=== PATIENT | female | born 1985 | race African-American/Black ===

== ENCOUNTER → 2017-05-16 | Outpatient (CLI) | payer BC, OTHER ==
[~2017-05-16] MED LIST: PEPC10TA; PRENMIS7 PO
== END ==
LOC: HPND 10:57
PROVIDERS: ATTEND Obstetrics & Gynecology
DX: O34.42 Maternal care for other abnormalities of cervix, second trimester (principal); O44.02 Complete placenta previa NOS or without hemorrhage, second trimester; O35.8XX0 Maternal care for other (suspected) fetal abnormality and damage, not applicable or unspecified
CPT/HCPCS: 76811; 76817

== ENCOUNTER → 2017-06-14 | Outpatient (CLI) | payer BC, OTHER ==
[~2017-06-14] MED LIST changes: +FERRTAB2 PO; +GNP150TA PO; +ONDA8TAB8 SL; +RANI150C PO
== END ==
LOC: HPND 08:09
PROVIDERS: ATTEND Obstetrics & Gynecology
DX: O35.1XX0 Maternal care for (suspected) chromosomal abnormality in fetus, not applicable or unspecified (principal); O34.42 Maternal care for other abnormalities of cervix, second trimester; Z3A.22 22 weeks gestation of pregnancy
CPT/HCPCS: 76816; 76817

== ENCOUNTER 2017-07-03 19:20 | Emergency (ER) | payer BC, OTHER ==
[~2017-07-03 19:20] MED LIST changes: -GNP150TA PO; -ONDA8TAB8 SL
--- NOTE | 2017-07-03 20:42 | PD ---
HPI Chief Complaint left leg swelling slight tenderness Date Seen: Jul 03, 2017 Time Seen: 20:30 Travel History International Travel<30 Days: No Contact w/Intl Traveler<30Days: No Known Affected Area: No History of Present Illness HPI 25 wk IUP with 1 month of left leg swelling and minimal tenderness Weeks Gestation: 25 Para: 1 : 2 History Obstetric History Obstetric History 1 vag del Social History Alcohol Use: No Tobacco Use: No Substance Abuse: No Allergies-Medications (Allergen,Severity, Reaction): Coded Allergies: No Known Allergies (Unverified , 06/25/17) Home Meds Active Scripts Multi-Vit/Iron-Folic [id number] C (Ferralet) 90-1-0.012-120 mg Tab, 1 CAPLET PO DAILY for 30 Days, #30 CAPLET 2 Refills Prov:Nimco WoodwardP 06/25/17 Ranitidine (Ranitidine) 150 Mg Cap, 150 MG PO DAILY, #30 CAP 0 Refills Prov:Nimco WoodwardP 06/25/17 W/O Vit A W/ Fe Carbo Pack (Citranatal B-Calm Pack) 20-1 & 25 (2) Mg Pack, 1 EA PO DIRECTED for Nutritional Supplement, #30 BLISTER 2 Refills 30 day supply. Prov:Josephine Ventura CNM [facility] 03/28/17 W/O Vit A W/ Fe Fumar (Citranatal [place]) 27-1-260 Mg Cap Prov:Karen Leslie [facility] 03/28/17 Reported Medications Famotidine (Pepcid AC) 10 Mg Tablet 03/28/17 Review of Systems General / Constitutional: No: Fever, Weight Gain, Chills, Other Eyes: No: Diploplia, Blurred Vision, Visual changes, Pain, Photophobia HENT: No: Headaches, Vertigo, Lightheadedness Cardiovascular: No: Irregular Rhythm, Chest Pain or Discomfort, Palpitations, Tachycardia, Syncope, Varicosities, Edema, Cyanosis Respiratory: No: Cough, Short of Breath, Other Gastrointestinal: No: Nausea, Vomiting, Diarrhea Genitourinary: No: Decreased Urinary Output, Oliguria Musculoskeletal: Edema, No: Limited ROM, Weakness, Cramping, Pain Skin: No Rash, No Itching, No Dryness, No Lumps, No Change in Pigmentation, No Change in Nails, No Alopecia, No Lesions Neurologic: No: Weakness, Dizziness, Syncope, Focal Abnormalities, Coordination Problem, Headache, Slurred Speech, Seizures Psychiatric: No: Depression, Suicidal Ideations, Homicidal Ideation Endocrine: No: Heat Intolerance, Cold Intolerance, Polydipsia, Polyuria, Other Physical Exam Narrative GENERAL: Well-nourished, well-developed patient. SKIN: Warm and dry. HEAD: Normocephalic and atraumatic. EYES: No scleral icterus. No injection or drainage. ENT: No nasal drainage noted. Mucous membranes pink. Airway patent. NECK: Supple, trachea midline. No JVD. CARDIOVASCULAR: Regular rate and rhythm without murmurs, gallops, or rubs. RESPIRATORY: Breath sounds equal bilaterally. No accessory muscle use. BREASTS: Bilateral exam showed no masses , no retractions, no nipple discharge. ABDOMEN/GI: Abdomen soft, non-tender, bowel sounds present, no rebound, no guarding Gravid to [-25] weeks size Fundal Height: [25-] GENITOURINARY: External Genitalia: intact and normal in appearance BUS glands: [-] Cervix: [-] Dilatation: [-0] Effacement: [-thick] Station: [-3] Membranes: [intact ] Uterine Contractions: [none-] FHT's: Category: [1-] Baseline: [133-] Reactive: [yes-] Variability: [-mod] Decels: [-none] EXTREMITIES: No cyanosis , slight edema in lower left leg near ankle , no tenderness in calf , neg Homans BACK: Nontender without obvious deformity. No CVA tenderness. NEUROLOGICAL: Awake and alert. Motor and sensory grossly within normal limits. Five out of 5 muscle strength in all muscle groups. Normal speech. Data Data Orders Orders Us Leg Venous Doppler Bilat (07/03/17 ) Celso Mcconnell II, MD Jul 03, 2017 20:42
--- NOTE | 2017-07-03 21:47 | RADRPT ---
EXAM DATE/TIME: 07/03/2017 20:59 [facility] COMPARISON: No previous studies available for comparison. INDICATIONS : Bilateral leg swelling. MEDICAL HISTORY : . Bilateral leg swelling. SURGICAL HISTORY : Appendectomy. LEEP. ENCOUNTER: Initial ACUITY: 2 months PAIN SCORE: 0/10 LOCATION: Bilateral legs. TECHNIQUE: Venous ultrasound of the left and right leg was performed from the inguinal ligament to the proximal calf. Real-time, color Doppler and spectral tracing, compression and augmentation techniques were us ed. FINDINGS: RIGHT LEG: There is normal compressibility of the deep venous system from the inguinal region to the proximal ca lf. No echogenic clot is seen in the lumen of the common femoral, femoral, popliteal, and posterior tibial veins. There is a normal response of the venous system to proximal and distal augmentation an d respiration. LEFT LEG: There is normal compressibility of the deep venous system from the inguinal region to the proximal ca lf. No echogenic clot is seen in the lumen of the common femoral, femoral, popliteal, and posterior tibial veins. There is a normal response of the venous system to proximal and distal augmentation an d respiration. CONCLUSION: No DVT. Feroz Baeza MD on July 03, 2017 at 21:45 Board Certified Radiologist. This report was verified electronically.
[2017-07-25] MEDS ORDERED: ONDA8TAB8 SL (09:42)
[2017-08-08] MEDS ORDERED: GNP150TA PO (09:42)
== END 2017-07-03 23:01 | disposition home or self-care (01) ==
LOC: HOBED 19:20
DX: O12.02 Gestational edema, second trimester (principal); Z3A.25 25 weeks gestation of pregnancy
CPT/HCPCS: 93970; 99284

== ENCOUNTER → 2017-08-02 | Outpatient (CLI) | payer BC, OTHER ==
[~2017-08-02] MED LIST changes: +GNP150TA PO; +ONDA8TAB8 SL
== END ==
LOC: HPND 09:22
PROVIDERS: ATTEND Obstetrics & Gynecology
DX: O34.42 Maternal care for other abnormalities of cervix, second trimester (principal); O35.1XX0 Maternal care for (suspected) chromosomal abnormality in fetus, not applicable or unspecified; O35.8XX0 Maternal care for other (suspected) fetal abnormality and damage, not applicable or unspecified; Z3A.00 Weeks of gestation of pregnancy not specified
CPT/HCPCS: 76816; 76817

== ENCOUNTER → 2017-09-05 | Outpatient (CLI) | payer BC, OTHER ==
[~2017-09-05] MED LIST changes: -RANI150C PO
== END ==
LOC: HPND 10:57
PROVIDERS: ATTEND Obstetrics & Gynecology
DX: O40.3XX0 Polyhydramnios, third trimester, not applicable or unspecified (principal); O35.8XX0 Maternal care for other (suspected) fetal abnormality and damage, not applicable or unspecified; O34.43 Maternal care for other abnormalities of cervix, third trimester
CPT/HCPCS: 76816

== ENCOUNTER 2017-10-07 23:05 | Inpatient (IN) | payer BC, OTHER ==
[~2017-10-07] VITALS: Ht 149.9 cm; Wt 58.0 kg
[~2017-10-07 23:05] MED LIST changes: +TERC.4%V VAGINAL
[2017-10-07 23:25] VITALS: PULSE 70
[2017-10-07] MEDS: LACTATED RINGER'S 1000 ML INJ 1,000 ML IV SCH (23:31)
[2017-10-07] MEDS ORDERED: LACTATED RINGER'S 1000 ML INJ 1,000 ML IV PRN (23:31)
--- NOTE | 2017-10-07 23:35 | HHI.HP ---
HPI Chief Complaint Contractions Date Seen: Oct 07, 2017 Time Seen: 23:33 Travel History International Travel<30 Days: No Contact w/Intl Traveler<30Days: No Known Affected Area: No History of Present Illness HPI 32-year-old black female at 39 weeks [facility] and presents in active labor cervix is 4 cm 80% and -2, heart rate tracing is reactive contractions are regular, no bleeding Weeks Gestation: 39 Para: 1 : 2 History Obstetric History Obstetric History One vaginal delivery Social History Alcohol Use: No Tobacco Use: No Substance Abuse: No Allergies-Medications (Allergen,Severity, Reaction): Coded Allergies: No Known Allergies (Unverified Adverse Reaction, Unknown, 10/03/17) Home Meds Active Scripts Terconazole Vaginal Cream (Terazol 7 Vaginal Cream) 0.4 % Cream, 1 APPL VAGINAL HS for Fungal Infection, #45 GM 0 Refills 1 applicatorful intravaginally x 7 nights Prov:Karen LeslieP 10/03/17 Ranitidine HCl (Gnp Acid Control 150 Maxi) 150 Mg Tab, 1 TAB PO DAILY, #60 BOTTLE 6 Refills Prov:Karen Leslie [facility] 08/08/17 Ondansetron Odt (Ondansetron Odt) 8 Mg Tab, 8 MG SL Q12HR for Nausea/Vomiting, # 10 TAB 0 Refills [facility] Multi-Vit/Iron-Folic [id number]-C62-[id number] C (Ferralet) 90-1-0.012-120 mg Tab, 1 CAPLET PO DAILY for 30 Days, #30 CAPLET 2 Refills Prov:[facility] 06/[facility]/17 W/O Vit A W/ Fe Carbo Pack (Citranatal B-Calm Pack) 20-1 & 25 (2) Mg Pack, 1 EA PO DIRECTED for Nutritional Supplement, #30 BLISTER 2 Refills 30 day supply. Prov:Josephine Ventura [facility] 03/28/17 W/O Vit A W/ Fe Fumar (Citranatal [place]) 27-1-260 Mg Cap Prov:Karen Leslie [facility] 03/28/17 Reported Medications Famotidine (Pepcid AC) 10 Mg Tablet 03/28/17 Review of Systems General / Constitutional: No: Fever, Weight Gain, Chills, Other Eyes: No: Diploplia, Blurred Vision, Visual changes, Pain, Photophobia HENT: No: Headaches, Vertigo, Lightheadedness Cardiovascular: No: Irregular Rhythm, Chest Pain or Discomfort, Palpitations, Tachycardia, Syncope, Varicosities, Edema, Cyanosis Respiratory: No: Cough, Short of Breath, Other Gastrointestinal: No: Nausea, Vomiting, Diarrhea Genitourinary: No: Decreased Urinary Output, Oliguria Musculoskeletal: No: Limited ROM, Weakness, Cramping, Edema, Pain Skin: No Rash, No Itching, No Dryness, No Lumps, No Change in Pigmentation, No Change in Nails, No Alopecia, No Lesions Neurologic: No: Weakness, Dizziness, Syncope, Focal Abnormalities, Coordination Problem, Headache, Slurred Speech, Seizures Psychiatric: No: Depression, Suicidal Ideations, Homicidal Ideation Endocrine: No: Heat Intolerance, Cold Intolerance, Polydipsia, Polyuria, Other Physical Exam Narrative GENERAL: Well-nourished, well-developed patient. SKIN: Warm and dry. HEAD: Normocephalic and atraumatic. EYES: No scleral icterus. No injection or drainage. ENT: No nasal drainage noted. Mucous membranes pink. Airway patent. NECK: Supple, trachea midline. No JVD. CARDIOVASCULAR: Regular rate and rhythm without murmurs, gallops, or rubs. RESPIRATORY: Breath sounds equal bilaterally. No accessory muscle use. BREASTS: Bilateral exam showed no masses , no retractions, no nipple discharge. ABDOMEN/GI: Abdomen soft, non-tender, bowel sounds present, no rebound, no guarding Gravid to [39-] weeks size Fundal Height: [-39] GENITOURINARY: External Genitalia: intact and normal in appearance BUS glands: [-] Cervix: [-] Dilatation: [4-] Effacement: [80-] Station: [-2] Presentation: [vtx by US-] Membranes: [intact ] Uterine Contractions: [-reg] FHT's: Category: [-1] Baseline: [133-] Reactive: [-yes] Variability: [-mod] Decels: [0-] EXTREMITIES: No cyanosis or edema. BACK: Nontender without obvious deformity. No CVA tenderness. NEUROLOGICAL: Awake and alert. Motor and sensory grossly within normal limits. Five out of 5 muscle strength in all muscle groups. Normal speech. Caprini VTE Risk Assessment Caprini VTE Risk Assessment: No/Low Risk (score <= 1) Caprini Risk Assessment Model Point Value = 1 Point Value = 2 Point Value = 3 Point Value = 5 Age 41-60 Minor surgery BMI > 25 kg/m2 Swollen legs Varicose veins or History of unexplained or recurrent spontaneous Oral contraceptives or hormone replacement Sepsis (< 1 month) Serious lung disease, including pneumonia (< 1 month) Abnormal pulmonary function Acute myocardial infarction Congestive heart failure (< 1 month) History of inflammatory bowel disease Medical patient at bed rest Age 61-74 Arthroscopic surgery Major open surgery (> 45 min) Laparoscopic surgery (> 45 min) Malignancy Confined to bed (> 72 hours) Immobilizing plaster cast Central venous access Age >= 75 History of VTE Family history of VTE Factor V Leiden Prothrombin [id number] Lupus anticoagulant Anticardiolipin antibodies Elevated serum homocysteine Heparin-induced thrombocytopenia Other congenital or acquired thrombophilia Stroke (< 1 month) Elective arthroplasty Hip, pelvis, or leg fracture Acute spinal cord injury (< 1 month) Prophylaxis Regimen Total Risk Factor Score Risk Level Prophylaxis Regimen 0-1 Low Early ambulation 2 Moderate Order ONE of the following: *Sequential Compression Device (SCD) *Heparin 5000 units SQ BID 3-4 Higher Order ONE of the following medications: *Heparin 5000 units SQ TID *Enoxaparin/Lovenox 40 mg SQ daily (WT < 150 kg, CrCl > 30 mL/min) *Enoxaparin/Lovenox 30 mg SQ daily (WT < 150 kg, CrCl > 10-29 mL/min) *Enoxaparin/Lovenox 30 mg SQ BID (WT < 150 kg, CrCl > 30 mL/min) AND/OR *Sequential Compression Device (SCD) 5 or more Highest Order ONE of the following medications: *Heparin 5000 units SQ TID (Preferred with Epidurals) *Enoxaparin/Lovenox 40 mg SQ daily (WT < 150 kg, CrCl > 30 mL/min) *Enoxaparin/Lovenox 30 mg SQ daily (WT < 150 kg, CrCl > 10-29 mL/min) *Enoxaparin/Lovenox 30 mg SQ BID (WT < 150 kg, CrCl > 30 mL/min) AND *Sequential Compression Device (SCD) Data Data Orders Orders Admit To Inpatient (10/07/17 ) Vital Signs (Adult) .Per protocol (10/07/17 23:31) Heart (10/07/17 23:31) Amnioinfusion (10/07/17 23:31) Urinary Catheter Management .ONCE (10/07/17 23:31) Diet Liquid (10/08/17 Breakfast) Lactated Ringer's 1000 Ml Inj (Lr 1000 M (10/07/17 23:31) Lactated Ringer's 1000 Ml Inj (Lr 1000 M (10/07/17 23:31) Sodium Chlorid 0.9% 500 Ml Inj (Ns 500 M (10/07/17 23:45) Sodium Chlor 0.9% 1000 Ml Inj (Ns 1000 M (10/07/17 23:51) Lidocaine 1% Inj (50 Ml) (Xylocaine 1% I (10/07/17 23:45) Citric Acid-Sodium Citrate Liq (Bicitra (10/07/17 23:45) Fentanyl Inj (Fentanyl Inj) (10/07/17 23:45) Fentanyl Inj (Fentanyl Inj) (10/07/17 23:45) Complete Blood Count With Diff (10/07/17 23:31) Hold Clot (10/07/17 23:31) Abo/Rh Blood Type (10/07/17 23:31) Urinalysis - C+S If Indicated (10/07/17 23:31) Drug Screen, Random Urine (10/07/17 23:31) Resp Oxygen Non Rebreathe Mask (10/07/17 ) ^ Epidural / Intrathecal Infus (10/07/17 23:31) Oxytocin 30 Units-500ml Premix (Pitocin (10/07/17 23:45) Lidocaine 1% Inj (50 Ml) (Xylocaine 1% I (10/07/17 23:45) Light Mineral Oil (Muri-Lube Oil) (10/07/17 23:45) Group B Strep: Negative Assessment/Plan Assessment and Plan Patient is 32-year-old white female at 39 weeks presents in active labor. Cervix is 4/ 80 and -2, vertex by ultrasound check, heart tracing is reactive contractions are regular. Plan--admit for labor management and anticipate vaginal delivery Celso Mcconnell II, MD Oct 07, 2017 23:35
[2017-10-07] MEDS ORDERED: OXYTOCIN 30 UNITS-500ML PREMIX 500 ML IV ONE (23:45)
[2017-10-07] MEDS ORDERED: CITRIC ACID-SODIUM CITRATE LIQ 30 ML UDC PO SCH (23:45)
[2017-10-07] MEDS ORDERED: LIDOCAINE HCL 1% 50 ML VIAL INFIL PRN (23:45)
[2017-10-07] MEDS ORDERED: MINERAL OIL 10 ML VIAL TOPICAL PRN (23:45)
[2017-10-07] MEDS ORDERED: SODIUM CHLORID 0.9% 500 ML INJ 500 ML IV PRN (23:45)
[2017-10-07] MEDS ORDERED: LIDOCAINE HCL 1% 50 ML VIAL I-DERMAL PRN (23:45)
[2017-10-07] MEDS ORDERED: SODIUM CHLOR 0.9% 1000 ML INJ 1,000 ML IV PRN (23:51)
[2017-10-07 23:55] VITALS: PULSE 63
[2017-10-08] VITALS (135 sets, daily range): BP systolic 95–159; BP diastolic 52–135; PULSE 54–126; RESP 16–21; TEMP 97.1–98.9; O2SAT 100
[2017-10-08] MEDS ORDERED: TUMS500C CHEW (00:02)
[2017-10-08 00:07] LABS: BLOOD, URINE NEG (NEG); COMMENT (UR) CULT NOT INDICATED; CULTURE IF INDICATED CULT NOT INDICATED; GLUCOSE,URINE NEG (NEG); KETONE, URINE NEG (NEG); NITRITE,URINE NEG (NEG); SQUAMOUS EPITHELIAL CELL URINE 12 /hpf (0-5); TRANSITIONAL EPI CELLS, URINE <1 /hpf; URINE COLOR LIGHT-YELLOW (YELLW/STRAW)
[2017-10-08] MEDS ORDERED: fentaNYL 2MCG-BUPIV 0.125% INJ 100 ML ONE (00:07)
[2017-10-08] MEDS ORDERED: ZANT300T PO (00:14)
[2017-10-08 00:16] LABS: AUTOMATED NEUTROPHIL # 8.5 TH/MM3 (1.8-7.7); BASOPHIL % 0.2 % (0.0-2.0); EOSINOPHIL % 0.4 % (0.0-4.0); HEMATOCRIT 33.7 % (35.0-46.0); HEMO FLAGS DIFF FINAL; LYMPH % 23.6 % (9.0-44.0); LYMPHOCYTE # 2.9 TH/MM3 (1.0-4.8); MEAN CELL VOLUME 97.6 FL (80.0-100.0); MEAN CORPUSCULAR HEMOGLOBIN 33.6 PG (27.0-34.0); MEAN CORPUSCULAR HGB CONC 34.5 % (32.0-36.0); NEUT % 69.8 % (16.0-70.0); PLATELET COUNT 204 TH/MM3 (150-450); RED BLOOD COUNT 3.45 MIL/MM3 (4.00-5.30); RED CELL DISTRIBUTION WIDTH 14.3 % (11.6-17.2); WHITE BLOOD COUNT 12.2 TH/MM3 (4.0-11.0)
[2017-10-08] MEDS: ACETAMINOPHEN 325 MG TAB PO PRN ×2 (01:49→05:31)
[2017-10-08] MEDS: CALCIUM CARBONATE 500 MG CHEWABLE TAB PO PRN ×2 (01:51→05:31)
[2017-10-08] MEDS ORDERED: fentaNYL 2MCG-BUPIV 0.125% 100 ML EPIDURAL SCH (02:00)
[2017-10-08] MEDS ORDERED: NO SYSTEM NARCOTICS PRN (02:00)
[2017-10-08] MEDS ORDERED: ePHEDrine/NS 25 MG/5 ML SYR IV PUSH PRN (02:00)
[2017-10-08] MEDS ORDERED: DO NOT ADMINISTER ANTICOAGULANTS PRN (02:00)
[2017-10-08] MEDS ORDERED: ONDANSETRON HCL 4 MG/2 ML VIAL ONE (04:03)
[2017-10-08] MEDS ORDERED: ONDANSETRON HCL 4 MG/2 ML VIAL IV PUSH PRN ×2 (05:00→17:45)
[2017-10-08] MEDS ORDERED: OXYTOCIN 30 UNITS-500ML PREMIX 500 ML IV SCH (07:00)
[2017-10-08] MEDS: LACTATED RINGER'S 1000 ML INJ 1,000 ML IV SCH ×2 (07:31→22:41)
[2017-10-08] MEDS ORDERED: BUPIVACAINE HCL PF 0.25% 10 ML VIAL ONE (08:42)
--- NOTE | 2017-10-08 10:46 | HHI.PR ---
Subjective Remarks Presented to patient's room upon assuming care for patient with reassuring heart tones at that time. Discussed with patient the plan of care for labor, as well as risks of vaginal delivery as well as risks and possible indications for delivery if indicated. We discussed that the plan is for healthy baby and healthy mom but we would perform section if medically indicated for or maternal reasons. All the patient's questions were answered. Essentially reviewing the heart rate monitor and noticed to decelerations. I presented to the room and examined the patient as well as discontinued oxytocin at this time and started oxygen. Vaginal examination was . We will start an amnioinfusion of 250 cc, and give the patient 500 cc fluid bolus. Patient was also repositioned with return to the baselines of 140s with moderate long-term variability. We'll monitor closely. All the patient's questions were answered. Objective Vital Signs Date Time Temp Pulse Resp B/P (MAP) Pulse Ox O2 Delivery O2 Flow Rate FiO2 10/08/17 10:10 60 131/83 (99) 10/08/17 10:05 59 10/08/17 10:00 60 10/08/17 10:00 57 129/72 (91) 10/08/17 10:00 18 10/08/17 09:55 64 133/81 (98) 10/08/17 09:55 61 10/08/17 09:51 65 117/80 (92) 10/08/17 09:50 65 10/08/17 09:45 68 159/90 (113) 10/08/17 09:45 72 10/08/17 09:41 122 152/135 (141) 10/08/17 09:40 70 10/08/17 09:30 69 135/77 (96) 10/08/17 09:15 90 143/86 (105) 10/08/17 09:00 64 132/80 (97) 10/08/17 08:46 62 136/87 (103) 10/08/17 08:30 98.2 16 10/08/17 08:30 59 122/75 (91) 10/08/17 08:16 70 142/81 (101) 10/08/17 08:00 66 146/82 (103) 10/08/17 07:46 126 10/08/17 07:46 124/64 (84) 10/08/17 07:40 77 10/08/17 07:35 55 10/08/17 07:31 54 142/86 (104) 10/08/17 07:30 56 10/08/17 07:25 58 10/08/17 07:20 61 10/08/17 07:16 58 146/77 (100) 10/08/17 07:15 64 10/08/17 07:05 123 10/08/17 07:00 89 135/103 (114) 10/08/17 06:55 58 10/08/17 06:45 139/84 (102) 10/08/17 06:40 61 10/08/17 06:35 65 10/08/17 06:31 129/81 (97) 10/08/17 06:25 62 10/08/17 06:15 125/73 (90) 10/08/17 06:10 62 10/08/17 06:00 122/81 (95) 10/08/17 05:55 66 10/08/17 05:52 18 10/08/17 05:50 68 10/08/17 05:45 57 109/72 (84) 10/08/17 05:40 65 10/08/17 05:30 118/75 (89) 10/08/17 05:30 18 10/08/17 05:25 68 10/08/17 05:15 126/78 (94) 10/08/17 05:10 61 10/08/17 05:00 97.6 59 18 120/77 (91) 10/08/17 04:55 64 10/08/17 04:45 62 123/68 (86) 10/08/17 04:40 59 10/08/17 04:30 126/84 (98) 10/08/17 04:30 18 10/08/17 04:25 59 10/08/17 04:15 132/87 (102) 10/08/17 04:10 64 10/08/17 04:00 18 10/08/17 04:00 136/87 (103) 10/08/17 03:58 98.1 10/08/17 03:55 67 10/08/17 03:50 77 10/08/17 03:45 78 123/80 (94) 10/08/17 03:45 74 10/08/17 03:40 74 10/08/17 03:30 18 10/08/17 03:30 103/71 (82) 10/08/17 03:25 76 10/08/17 03:15 109/69 (82) 10/08/17 03:10 70 10/08/17 03:00 18 10/08/17 03:00 107/56 (73) 10/08/17 02:55 66 10/08/17 02:45 96/55 (69) 10/08/17 02:40 71 10/08/17 02:30 95/52 (66) 10/08/17 02:25 64 10/08/17 02:15 95/62 (73) 10/08/17 02:10 66 10/08/17 02:00 64 109/60 (76) 10/08/17 01:55 62 10/08/17 01:48 97.1 18 10/08/17 01:46 66 109/63 (78) 10/08/17 01:40 74 10/08/17 01:31 122 131/107 (115) 10/08/17 01:25 66 10/08/17 01:20 61 10/08/17 01:20 63 10/08/17 01:15 74 10/08/17 01:15 69 10/08/17 01:15 69 127/79 (95) 10/08/17 01:10 69 10/08/17 01:00 76 10/08/17 01:00 120/87 (98) 10/08/17 01:00 75 10/08/17 01:00 76 10/08/17 00:55 79 10/08/17 00:55 76 126/87 (100) 10/08/17 00:55 82 10/08/17 00:50 68 10/08/17 00:50 65 134/89 (104) 10/08/17 00:50 72 10/08/17 00:46 73 158/105 (122) 10/08/17 00:45 70 10/08/17 00:45 69 10/08/17 00:42 145/85 (105) 10/08/17 00:42 84 10/08/17 00:39 145/105 (118) 10/08/17 00:37 142/68 (92) 10/08/17 00:35 68 10/08/17 00:33 130/89 (103) 10/08/17 00:31 130/83 (99) 10/08/17 00:25 70 10/08/17 00:15 98.2 10/08/17 00:15 82 10/08/17 00:15 18 10/08/17 00:12 69 152/89 (110) 10/07/17 23:55 63 10/07/17 23:25 70 Result Diagram: 10/07/17 2245 Karen Flower MD Oct 08, 2017 10:46
[2017-10-08] MEDS ORDERED: TERBUTALINE INJ 1 MG/ML AMP ONE (12:53)
[2017-10-08] MEDS ORDERED: LIDOCAINE HCL 1% 50 ML VIAL ONE (13:08)
[2017-10-08 13:40] LABS: BLOOD GAS BASE EXCESS -2.4 mmol/L (-2-2); BLOOD GAS O2 HGB SATURATION 20 % (90-100); CORD BLOOD GAS HCO3 24 mmol/L (21-29); CORD BLOOD GAS PCO2 55 mmHG (34-78); CORD BLOOD GAS PH 7.26 (7.14-7.42); CORD BLOOD GAS PO2 15 mmHG (3.0-40.0)
[2017-10-08 13:41] LABS: DRAW SITE CORD BLOOD; STAT NO
--- NOTE | 2017-10-08 13:45 | RADRPT ---
EXAM DATE/TIME: 10/08/2017 13:21 [facility] COMPARISON: No previous studies available for comparison. INDICATIONS : For instrument count MEDICAL HISTORY : None. SURGICAL HISTORY : section. ENCOUNTER: Initial ACUITY: 1 day PAIN SCORE: Non-responsive. LOCATION: Bilateral abdomen FINDINGS: There is a curvilinear radiopaque opacity overlying the mid upper abdomen. Otherwise, no evidence for radiopaque foreign bodies. No abnormal calcifications. Osseous structures are intact. CONCLUSION: 1. Curvilinear radiopaque opacity overlying the mid upper abdomen. This was marked on the radiographs for clinical correlation. 2. Otherwise, no radiopaque foreign bodies. Osvaldo Wei MD on October 08, 2017 at 13:40 Board Certified Radiologist. This report was verified electronically.
--- NOTE | 2017-10-08 14:13 | HHI.PR ---
Subjective Remarks [facility] Attending heart rate noted to be in the 80s on the heart monitor. Presented to room to perform resuscitative maneuvers. The patient had already received an amnioinfusion. Oxytocin was discontinued, IV fluids were administered, oxygen was placed, and terbutaline was given. The patient was repositioned several times, however without any response in the heart tones. This stat delivery was called after heart tones were down in the 80s for approximately 8-9 minutes. The patient was taken the operating room as does performed with cord pH 7.26 and a vigorous with Apgars 9/9 but a short umbilical cord. See full operative report for further details. Objective Vital Signs Date Time Temp Pulse Resp B/P (MAP) Pulse Ox O2 Delivery O2 Flow Rate FiO2 10/08/17 12:55 108 10/08/17 12:51 112 124/73 (90) 10/08/17 12:50 65 10/08/17 12:45 68 10/08/17 12:40 64 120/79 (93) 10/08/17 12:40 66 10/08/17 12:35 69 10/08/17 12:30 73 127/79 (95) 10/08/17 12:30 63 10/08/17 12:25 71 10/08/17 12:20 69 10/08/17 12:20 65 112/70 (84) 10/08/17 12:15 65 10/08/17 12:10 65 10/08/17 12:10 65 124/73 (90) 10/08/17 12:05 66 10/08/17 12:00 73 125/79 (94) 10/08/17 12:00 67 10/08/17 11:55 68 10/08/17 11:50 60 125/70 (88) 10/08/17 11:50 60 10/08/17 11:45 65 10/08/17 11:40 59 10/08/17 11:40 59 134/70 (91) 10/08/17 11:35 64 10/08/17 11:30 61 118/83 (95) 10/08/17 11:30 72 10/08/17 11:25 62 10/08/17 11:20 60 10/08/17 11:20 60 129/88 (102) 10/08/17 11:15 63 10/08/17 11:10 61 123/72 (89) 10/08/17 11:10 63 10/08/17 11:05 62 10/08/17 11:00 20 10/08/17 11:00 60 10/08/17 11:00 60 116/73 (87) 10/08/17 11:00 98.9 10/08/17 10:55 96 10/08/17 10:50 66 122/75 (91) 10/08/17 10:50 69 10/08/17 10:45 63 10/08/17 10:40 69 122/80 (94) 10/08/17 10:35 84 10/08/17 10:30 63 121/63 (82) 10/08/17 10:30 55 10/08/17 10:20 59 124/76 (92) 10/08/17 10:10 60 131/83 (99) 10/08/17 10:05 59 10/08/17 10:00 60 10/08/17 10:00 57 129/72 (91) 10/08/17 10:00 18 10/08/17 09:55 64 133/81 (98) 10/08/17 09:55 61 10/08/17 09:51 65 117/80 (92) 10/08/17 09:50 65 10/08/17 09:45 68 159/90 (113) 10/08/17 09:45 72 10/08/17 09:41 122 152/135 (141) 10/08/17 09:40 70 10/08/17 09:30 69 135/77 (96) 10/08/17 09:15 90 143/86 (105) 10/08/17 09:00 64 132/80 (97) 10/08/17 08:46 62 136/87 (103) 10/08/17 08:30 98.2 16 10/08/17 08:30 59 122/75 (91) 10/08/17 08:16 70 142/81 (101) 10/08/17 08:00 66 146/82 (103) 10/08/17 07:46 126 10/08/17 07:46 124/64 (84) 10/08/17 07:40 77 10/08/17 07:35 55 10/08/17 07:31 54 142/86 (104) 10/08/17 07:30 56 10/08/17 07:25 58 10/08/17 07:20 61 10/08/17 07:16 58 146/77 (100) 10/08/17 07:15 64 10/08/17 07:05 123 10/08/17 07:00 89 135/103 (114) 10/08/17 06:55 58 10/08/17 06:45 139/84 (102) 10/08/17 06:40 61 10/08/17 06:35 65 10/08/17 06:31 129/81 (97) 10/08/17 06:25 62 10/08/17 06:15 125/73 (90) 10/08/17 06:10 62 10/08/17 06:00 122/81 (95) 10/08/17 05:55 66 10/08/17 05:52 18 10/08/17 05:50 68 10/08/17 05:45 57 109/72 (84) 10/08/17 05:40 65 10/08/17 05:30 118/75 (89) 10/08/17 05:30 18 10/08/17 05:25 68 10/08/17 05:15 126/78 (94) 10/08/17 05:10 61 10/08/17 05:00 97.6 59 18 120/77 (91) 10/08/17 04:55 64 10/08/17 04:45 62 123/68 (86) 10/08/17 04:40 59 10/08/17 04:30 126/84 (98) 10/08/17 04:30 18 10/08/17 04:25 59 10/08/17 04:15 132/87 (102) 10/08/17 04:10 64 10/08/17 04:00 18 10/08/17 04:00 136/87 (103) 10/08/17 03:58 98.1 10/08/17 03:55 67 10/08/17 03:50 77 10/08/17 03:45 78 123/80 (94) 10/08/17 03:45 74 10/08/17 03:40 74 10/08/17 03:30 18 10/08/17 03:30 103/71 (82) 10/08/17 03:25 76 10/08/17 03:15 109/69 (82) 10/08/17 03:10 70 10/08/17 03:00 18 10/08/17 03:00 107/56 (73) 10/08/17 02:55 66 10/08/17 02:45 96/55 (69) 10/08/17 02:40 71 10/08/17 02:30 95/52 (66) 10/08/17 02:25 64 10/08/17 02:15 95/62 (73) 10/08/17 02:10 66 10/08/17 02:00 64 109/60 (76) 10/08/17 01:55 62 10/08/17 01:48 97.1 18 10/08/17 01:46 66 109/63 (78) 10/08/17 01:40 74 10/08/17 01:31 122 131/107 (115) 10/08/17 01:25 66 10/08/17 01:20 61 10/08/17 01:20 63 10/08/17 01:15 74 10/08/17 01:15 69 10/08/17 01:15 69 127/79 (95) 10/08/17 01:10 69 10/08/17 01:00 76 10/08/17 01:00 120/87 (98) 10/08/17 01:00 75 10/08/17 01:00 76 10/08/17 00:55 79 10/08/17 00:55 76 126/87 (100) 10/08/17 00:55 82 10/08/17 00:50 68 10/08/17 00:50 65 134/89 (104) 10/08/17 00:50 72 10/08/17 00:46 73 158/105 (122) 10/08/17 00:45 70 10/08/17 00:45 69 10/08/17 00:42 145/85 (105) 10/08/17 00:42 84 10/08/17 00:39 145/105 (118) 10/08/17 00:37 142/68 (92) 10/08/17 00:35 68 10/08/17 00:33 130/89 (103) 10/08/17 00:31 130/83 (99) 10/08/17 00:25 70 10/08/17 00:15 98.2 10/08/17 00:15 82 10/08/17 00:15 18 10/08/17 00:12 69 152/89 (110) 10/07/17 23:55 63 10/07/17 23:25 70 Result Diagram: 10/07/17 2245 Karen Flower MD Oct 08, 2017 14:13
--- NOTE | 2017-10-08 14:14 | PD.OB.DELI ---
Procedure Note Section Procedure Performed by Karen Flower Procedure: Primary Low Transverse Sec Indication for delivery: Nonreassuring heart tracing Previous condition: None Informed consent obtained: For anesthesia, For procedure Anesthesia: Epidural Medication prior to procedure: As documented in eMAR Urinary catheter: Inserted using sterile technique, To dependent drainage, ml urine output (500cc clear) Sterile preparation: With 10% povidone iodine (Betadine) Position: Supine with safety belt applied Operative Features Skin Incision: Pfannenstiel Uterine Incision: Low transverse w/knife / blunt ext Membranes Ruptured: Artificially Presentation: Occiput posterior Delivery date: Oct 08, 2017 Delivery time: 13:04 Delivery of infant: Uneventful Infant: Male One Minute : 9 Five Minute : 9 Weight: 2820 Status of infant: Viable, Cord blood Placenta delivered: Intact Medications: Antibiotics, Oxytocin Estimated blood loss: 500 Procedure tolerated: Well Maternal Condition: Stable Condition: Stable Procedure in detail See dictation Karen Flower MD Oct 08, 2017 14:14
[2017-10-08] MEDS ORDERED: ACETAMINOPHEN 1000 MG/100 ML 100 ML IV ONE (14:45)
[2017-10-08] MEDS ORDERED: OXYTOCIN 30 UNITS-500ML PREMIX 500 ML ONE (15:01)
[2017-10-08] MEDS ORDERED: EPIDURAL-NALOXONE HCL 0.4 MG/ML AMP IV PUSH PRN (16:15)
[2017-10-08] MEDS ORDERED: EPIDURAL-NO SYSTEMIC NARCOTICS PRN (16:15)
[2017-10-08] MEDS ORDERED: EPIDURAL-DIPHENHYDRAMINE HCL 50 MG CAP PO PRN (16:15)
[2017-10-08] MEDS ORDERED: EPIDURAL-DO NOT ADMINISTER ANTICOAGULANTS PRN (16:15)
[2017-10-08] MEDS ORDERED: EPIDURAL-DIPHENHYDRAMINE HCL 50 MG/ML VIAL IV PUSH PRN (16:15)
[2017-10-08] MEDS ORDERED: ACETAMINOPHEN 325 MG TAB PO PRN (17:45)
[2017-10-08] MEDS ORDERED: SODIUM CHLORIDE 0.9% FLUSH 10 ML FLUSH IV FLUSH PRN (17:45)
[2017-10-08] MEDS ORDERED: DOCUSATE SODIUM 50 MG/SENNA 8.6 MG TAB PO PRN (17:45)
[2017-10-08] MEDS ORDERED: ZOLPIDEM TARTRATE 5 MG TAB PO PRN (17:45)
[2017-10-08] MEDS ORDERED: SIMETHICONE 80 MG CHEWABLE TAB PO PRN (17:45)
[2017-10-08] MEDS ORDERED: OXYTOCIN 30 UNITS-500ML PREMIX 500 ML IV ONE (17:45)
[2017-10-08] MEDS ORDERED: oxyCODONE/ACETAMINOPHEN 5 MG/325 MG TAB PO PRN ×2 (17:45)
[2017-10-08] MEDS: SODIUM CHLORIDE 0.9% FLUSH 10 ML FLUSH IV FLUSH SCH (21:00)
[2017-10-08] MEDS: IBUPROFEN 600 MG TAB PO PRN (22:55)
[2017-10-08] MEDS: ACETAMINOPHEN 1000 MG/100 ML 100 ML IV SCH (22:55)
[2017-10-09 00:06] VITALS: BP 136/75; PULSE 70; RESP 18; TEMP 98.8
[2017-10-09] MEDS ORDERED: OXYTOCIN 30 UNITS-500ML PREMIX 500 ML IV PRN (03:45)
[2017-10-09 03:46] VITALS: BP 147/75; PULSE 65; RESP 18; TEMP 98.2
[2017-10-09] MEDS: IBUPROFEN 600 MG TAB PO PRN ×3 (05:45→20:39)
[2017-10-09] MEDS: ACETAMINOPHEN 1000 MG/100 ML 100 ML IV SCH (05:45)
[2017-10-09 05:58] LABS: AUTOMATED NEUTROPHIL # 22.9 TH/MM3 (1.8-7.7); BASOPHIL % 0.1 % (0.0-2.0); EOSINOPHIL % 0.1 % (0.0-4.0); HEMATOCRIT 29.6 % (35.0-46.0); HEMO FLAGS DIFF FINAL; LYMPH % 7.6 % (9.0-44.0); MEAN CELL VOLUME 95.1 FL (80.0-100.0); MEAN CORPUSCULAR HEMOGLOBIN 31.3 PG (27.0-34.0); MONO % 3.6 % (0.0-8.0); NEUT % 88.6 % (16.0-70.0); PLATELET COUNT 163 TH/MM3 (150-450); RED BLOOD COUNT 3.11 MIL/MM3 (4.00-5.30); RED CELL DISTRIBUTION WIDTH 13.9 % (11.6-17.2); WHITE BLOOD COUNT 25.9 TH/MM3 (4.0-11.0)
--- NOTE | 2017-10-09 07:18 | MP ---
cc: KAREN FLOWER MD DATE OF SURGERY 10/08/2017 PREOPERATIVE DIAGNOSIS 1. Intrauterine at 39 weeks and three days. 2. Labor 3. bradycardia POSTOPERATIVE DIAGNOSIS 1. Intrauterine at 39 weeks and three days. 2. Labor 3. bradycardia 4. Short umbilical cord PROCEDURE Primary low transverse section, two layer closure and no extension by Pfannenstiel skin incision. ATTENDING SURGEON Dr. Karen Flower REAL ESTATE VALUER Kassidy Schaefer Meseret FINDINGS A viable female infant in cephalic presentation/OP with 's of 8 and 9, weighing 2820 grams and cord pH 7.26. The was noted to have a very short umbilical cord. There was grossly normal maternal anatomy with normal fallopian tubes, uterus and ovaries. INDICATIONS The patient is a 32-year-old 2 para 1 who presented in labor at 39 weeks. She was augmented with some variable heart rate decelerations which resolved, however, spontaneously had an episode of bradycardia to the 80's that was unresponsive to resuscitative measures at 5 cm dilated. SPECIMENS SUBMITTED Cord blood, cord pH ESTIMATED BLOOD LOSS 500 cc URINE OUTPUT 500 cc clear urine at the end of the procedure. IV FLUIDS One liter lactated Ringer's PROCEDURE DESCRIPTION The patient was quickly consented for the need to proceed for delivery with risks, benefits and alternatives including, but not limited to pain, infection, bleeding, injury to other organs like the bladder, bowel, nerves and vessels, injury to the baby, need for repeat operation, need for hysterectomy or blood transfusion, wound infection or break down and other possible complications. The patient was rapidly taken to the operating room where a stat delivery was performed. She was placed on the operating room table and rapidly prepped with Betadine. After confirming adequate anesthesia from her dense epidural, a Pfannenstiel skin incision was made with a scalpel and carried down to the level of the fascia. The fascia was nicked with a scalpel and extended bluntly. The rectus muscles were off of the underlying fascia bluntly. The rectus muscles were in the midline and the peritoneum entered bluntly. The peritoneal incision was extended bluntly. The bladder blade was quickly placed and the lower uterine segment incised with a scalpel. The hysterotomy was created bluntly and the vertex elevated to the level of the hysterotomy and very quickly delivered. The remainder of the was delivered atraumatically and the fetus was vigorous on the field. After a delay, the cord was doubly clamped and cut and the vigorous handed off to the awaiting pediatric team. Of note, the baby was delivered in less than one minute from the time of incision. The placenta was removed manually and the uterus exteriorized and cleared of all clots and debris. The hysterotomy was repaired with a #1 chromic in a running locked fashion. A second layer of the same suture was used in an imbricating fashion. A small area of bleeding was noted at the left lower uterine segment and was oversewn with a 2-0 Vicryl in a [id number] manner. Excellent hemostasis was then noted. The uterus was returned to the abdomen. The gutters were clear of all clots and debris. The hysterotomy was reinspected and noted to be hemostatic. The peritoneum was reapproximated with 2-0 Vicryl in a running fashion. The rectus muscles were examined and noted to be hemostatic. The fascia was reapproximated with #1 Vicryl in a running fashion. The subcutaneous tissue was irrigated with warm normal saline and the fascial incision noted to be intact. The subcutaneous tissue was closed with 2-0 Vicryl in an interrupted fashion. The skin edges were reapproximated with 3-0 Monocryl in a subcuticular fashion. Dermabond and a dressing were placed. Radiology x-ray was performed due to lack of count prior to the procedure due to the emergent need of the procedure. An x-ray was performed and no instruments were noted. The patient was taken to the PACU in stable condition. MD IBIS Roy/CROW /11:09 PM /6:54 AM CELESTE
[2017-10-09] MEDS: LACTATED RINGER'S 1000 ML INJ 1,000 ML IV SCH (08:41)
[2017-10-09] MEDS: SODIUM CHLORIDE 0.9% FLUSH 10 ML FLUSH IV FLUSH SCH (09:00)
[2017-10-09 15:11] VITALS: BP 138/80; PULSE 70
[2017-10-09] MEDS ORDERED: MEASLES, MUMPS, RUBELLA VACCINE 0.5 ML VIAL SQ ONE (16:00)
[2017-10-09] MEDS ORDERED: DIPHTH/TETANUS/ACEL PERTUSSIS (BOOSTER) 0.5 ML VIAL/PFS IM ONE (16:00)
[2017-10-09 20:35] VITALS: BP 144/84; PULSE 70; RESP 16; TEMP 98.9
[2017-10-10] MEDS: IBUPROFEN 600 MG TAB PO PRN ×2 (02:45→10:05)
[2017-10-10 08:00] VITALS: BP 127/79; PULSE 71; RESP 18; TEMP 98.4
--- NOTE | 2017-10-10 08:39 | HHI.OB ---
Subjective Post Operative Day: 2 Remarks Ms Lerma had no acute events overnight. She was a little tearful and depressed this morning, still uncertain about why the urgent C/S was performed. We explained about the distress with bradycardia due to the short cord and provided reassurance. Pt is ambulating around the room, has some pain that is controlled, is tolerating PO, voiding and passing some flatus, but no BM yet. Lochia normal and decreasing. Pt plans to go home today. Denies CP, SOB, N/ V/D and DVT pain. Objective Vitals/I&O Vital Signs Date Time Temp Pulse Resp B/P (MAP) Pulse Ox O2 Delivery O2 Flow Rate FiO2 10/09/17 20:35 70 144/84 (104) 10/09/17 20:35 98.9 16 10/09/17 15:11 70 138/80 (99) Result Diagram: 10/09/17 0514 Objective Remarks GENERAL: Well-nourished, well-developed patient in NAD, tearful upon entry into the room, but improved after interview. CARDIOVASCULAR: Regular rate and rhythm without murmur, gallop, or rub. RESPIRATORY: Breath sounds equal bilaterally in all lung garcia. No accessory muscle use. ABDOMEN/GI: Abdomen soft, non-tender, bowel sounds present. Appropriately distended with suprapubic incision c/d/i w/o leakage or exudate. Fundus: Firm, non-tender at umbilicus. GENITOURINARY: Light to moderate bleeding. EXTREMITIES: No cyanosis or edema, non-tender, without signs of DVT. Medications and IVs Current Medications Medications (Trade) Dose Ordered Sig/Jorge Route Start Time Stop Time Status Last Admin (Tums Chew) 500 mg UNSCH PRN PO 10/08/17 01:45 10/08/17 01:51 (Tylenol) 650 mg Q4H PRN PO 10/08/17 01:45 10/08/17 01:49 (NS Flush) 2 ml BID IV FLUSH 10/08/17 21:00 (NS Flush) 2 ml UNSCH PRN IV FLUSH 10/08/17 17:45 (Mylicon Chew) 80 mg QID PRN PO 10/08/17 17:45 10/10/17 03:19 (Tylenol) 650 mg Q6H PRN PO 10/08/17 17:45 (Motrin) 600 mg Q6H PRN PO 10/08/17 17:45 10/10/17 02:45 (Percocet 5-325 Mg) 1 tab Q4H PRN PO 10/08/17 17:45 (Percocet 5-325 Mg) 2 tab Q4H PRN PO 10/08/17 17:45 (Crystal-Colace) 2 tab Q12H PRN PO 10/08/17 17:45 10/10/17 03:19 (Ambien) 5 mg HS PRN PO 10/08/17 17:45 (Zofran Inj) 4 mg Q6H PRN IV PUSH 10/08/17 17:45 Assessment/Plan Assessment and Plan 32YO delivered at 39/3 weeks via C/S and progressing well on POD#2. Pain is controlled, taking PO, ambulating w/o dizziness, voiding and flatus, but no BM yet. AFVSS with BP still elevated to 147/84 last night. Denies CP, SOB, N/V/ D and DVT pain. Would like to go home today is baby is cleared by Peds. Physical exam benign. PLAN: -Routine post op care -Ibuprofen and Percocet for pain -Advised about taking showers vs bath -Counselled about pelvic rest for 6 weeks and no sexual intercourse -Pt will wait to decide on control method; had constant bleeding with depo provera in the past -Will see [facility] in 1 week and 6 week visit Discussed with Sherie Mcconnell and Estelle Discharge Planning Discharge today if baby cleared by Peds Jean Carlos Mario MD R1 Oct 10, 2017 08:39
[2017-10-10] MEDS: SODIUM CHLORIDE 0.9% FLUSH 10 ML FLUSH IV FLUSH SCH (09:13)
[2017-10-10] MEDS ORDERED: OXYC1TAB63 PO (09:34)
[2017-10-10] MEDS ORDERED: IBUP-232 PO (09:34)
--- NOTE | 2017-10-10 09:37 | HHI.DCPOC ---
Discharge Care Plan Report Symptoms to Your Doctor -Temperature above 100.5 degrees -Redness, of incision or excessive or foul smelling drainage -Unusual pain or calf pain -Increased vaginal bleeding -Painful or difficulty urinating -Feelings of extreme sadness or anxiety after 2 weeks Goals to Promote Your Health * To prevent worsening of your condition and complications, please take medications as prescribed. Please do not place anything in the vagina for 6 weeks (this includes no sexual activity). Please take showers instead of baths for the next several weeks as your incision heals. Please come back in if your incision begins to leak fluid or become painful or hot to the touch. * To maintain your health at the optimal level, please follow up with your OB/ SENIOR COMPLIANCE ANALYST in 1 week. Directions to Meet Your Goals Take your medications as prescribed Follow your dietary instruction Follow activity as directed Ensure plenty of rest for recovery Drink fluids for hydration Keep your appointments as scheduled Take your immunizations and boosters as scheduled If your symptoms worsen call your PCP, if no PCP go to Urgent Care Center or Emergency Room Smoking is Dangerous to Your Health. Avoid second hand smoke Call the 24-hour crisis hotline for domestic abuse at Jean Carlos Mario MD R1 Oct 10, 2017 09:37
--- NOTE | 2017-10-10 11:18 | HHI.OB ---
Objective Vitals/I&O Vital Signs Date Time Temp Pulse Resp B/P (MAP) Pulse Ox O2 Delivery O2 Flow Rate FiO2 10/10/17 08:00 98.4 71 18 127/79 (95) 10/09/17 20:35 70 144/84 (104) 10/09/17 20:35 98.9 16 10/09/17 15:11 70 138/80 (99) Result Diagram: 10/09/17 0514 Objective Remarks GENERAL: Well-nourished, well-developed patient in NAD, tearful upon entry into the room, but improved after interview. CARDIOVASCULAR: Regular rate and rhythm without murmur, gallop, or rub. RESPIRATORY: Breath sounds equal bilaterally in all lung garcia. No accessory muscle use. ABDOMEN/GI: Abdomen soft, non-tender, bowel sounds present. Appropriately distended with suprapubic incision c/d/i w/o leakage or exudate. Fundus: Firm, non-tender at umbilicus. GENITOURINARY: Light to moderate bleeding. EXTREMITIES: No cyanosis or edema, non-tender, without signs of DVT. Medications and IVs Current Medications Medications (Trade) Dose Ordered Sig/Jorge Route Start Time Stop Time Status Last Admin (Tums Chew) 500 mg UNSCH PRN PO 10/08/17 01:45 10/08/17 01:51 (Tylenol) 650 mg Q4H PRN PO 10/08/17 01:45 10/08/17 01:49 (NS Flush) 2 ml BID IV FLUSH 10/08/17 21:00 (NS Flush) 2 ml UNSCH PRN IV FLUSH 10/08/17 17:45 (Mylicon Chew) 80 mg QID PRN PO 10/08/17 17:45 10/10/17 03:19 (Tylenol) 650 mg Q6H PRN PO 10/08/17 17:45 (Motrin) 600 mg Q6H PRN PO 10/08/17 17:45 10/10/17 10:05 (Percocet 5-325 Mg) 1 tab Q4H PRN PO 10/08/17 17:45 (Percocet 5-325 Mg) 2 tab Q4H PRN PO 10/08/17 17:45 (Crystal-Colace) 2 tab Q12H PRN PO 10/08/17 17:45 10/10/17 03:19 (Ambien) 5 mg HS PRN PO 10/08/17 17:45 (Zofran Inj) 4 mg Q6H PRN IV PUSH 10/08/17 17:45 Assessment/Plan Assessment and Plan 32YO delivered at 39/3 weeks via C/S and progressing well on POD#2. Pain is controlled, taking PO, ambulating w/o dizziness, voiding and flatus, but no BM yet. AFVSS with BP still elevated to 147/84 last night. Denies CP, SOB, N/V/ D and DVT pain. Would like to go home today is baby is cleared by Peds. Physical exam benign. PLAN: -Routine post op care -Ibuprofen and Percocet for pain -Advised about taking showers vs bath -Counselled about pelvic rest for 6 weeks and no sexual intercourse -Pt will wait to decide on control method; had constant bleeding with depo provera in the past -Will see [facility] in 1 week and 6 week visit Discussed with Sherie Mcconnell and Estelle Discharge Planning Discharge today if baby cleared by Peds Yue Mccabe MD R2 Oct 10, 2017 11:18
[2017-10-10 13:04] LABS: AUTOMATED NEUTROPHIL # 15.5 TH/MM3 (1.8-7.7); BASOPHIL % 0.2 % (0.0-2.0); EOSINOPHIL % 0.1 % (0.0-4.0); HEMATOCRIT 26.9 % (35.0-46.0); HEMO FLAGS DIFF FINAL; LYMPH % 12.7 % (9.0-44.0); LYMPHOCYTE # 2.4 TH/MM3 (1.0-4.8); MEAN CELL VOLUME 94.7 FL (80.0-100.0); MEAN CORPUSCULAR HEMOGLOBIN 31.3 PG (27.0-34.0); MONO % 3.9 % (0.0-8.0); NEUT % 83.1 % (16.0-70.0); PLATELET COUNT 178 TH/MM3 (150-450); RED BLOOD COUNT 2.84 MIL/MM3 (4.00-5.30); RED CELL DISTRIBUTION WIDTH 14.3 % (11.6-17.2); WHITE BLOOD COUNT 18.7 TH/MM3 (4.0-11.0)
[2017-10-16] MEDS ORDERED: ZITHTAB PO (13:37)
[2017-10-16] MEDS ORDERED: IBUP-232 PO (13:41)
== END 2017-10-10 18:03 | disposition home or self-care (01) | DRG 766 ==
LOC: HOBED 23:05 → H2EA 23:33 → H1EA 10-08 15:27
PROVIDERS: ADMIT Obstetrics & Gynecology Maternal & Fetal Medicine; ATTEND Obstetrics & Gynecology Maternal & Fetal Medicine
PROC: 10D00Z1 Extraction of Products of Conception, Low, Open Approach (ICD-10-PCS; principal; 2017-10-08)
PROC: 3E0E7GC Introduction of Other Therapeutic Substance into Products of Conception, Via Natural or Artificial Opening (ICD-10-PCS; 2017-10-08)
PROC: 3E0R3BZ Introduction of Anesthetic Agent into Spinal Canal, Percutaneous Approach (ICD-10-PCS; 2017-10-08)
PROC: 00HU33Z Insertion of Infusion Device into Spinal Canal, Percutaneous Approach (ICD-10-PCS; 2017-10-08)
DX: O76 Abnormality in fetal heart rate and rhythm complicating labor and delivery (principal); O69.3XX0 Labor and delivery complicated by short cord, not applicable or unspecified; Z37.0 Single live birth; Z3A.39 39 weeks gestation of pregnancy
CPT/HCPCS: 59025; 74000; 76815; 80307; 81001; 82805; 85025; 86900; 86901; J0131; J2405; J2590; J3010; J3105; J7120